=== PATIENT | female | born 1965 | race Caucasian/White ===

== ENCOUNTER 2017-10-07 14:49 | Emergency (ER) | payer OTHER ==
[2017-10-07 15:26] VITALS: BP 109/74; PULSE 61; TEMP 98.5; BMI 24.0
--- NOTE | 2017-10-07 15:30 | PDOC ---
History of Present Illness - General History Source: Patient, Family (Sister in law. ) Exam Limitations: No Limitations - History of Present Illness Initial Comments: 10/07/17 15:53 The patient is a 51 year old female, with a significant past medical history of migraines and arthritis, who presents to the emergency department with, 2 weeks of right ankle pain and swelling. The patient reports that she twisted her ankle 2 weeks ago while rushing down steps and believed it was healing. She now feels as the ankle pain has worsened with associated swelling. She reports difficulty ambulating due to the pain. She denies recent fevers, chills, headache or dizziness. She denies recent nausea, vomit, diarrhea or constipation. She denies recent dysuria, frequency, urgency or hematuria. She denies recent chest pain or shortness of breath. Allergies: NKA Past surgical history: None reported. Social history: Nonsmoker. Denies EtOH use and recreational drug use. Familial History: Reviewed and noncontributory. <Gracia Mcdaniels - Last Filed: 10/07/17 15:53> <Leonardo Ochoa - Last Filed: 10/07/17 16:06> - General Chief Complaint: Pain Stated Complaint: RIGHT ANKLE AND HEEL PAIN 2 WEEKS Time Seen by Provider: 10/07/17 14:53 Past History <Gracia Mcdaniels - Last Filed: 10/07/17 15:53> - Past Medical History COPD: No Other medical history: arthritis,migraines - Suicide/Smoking/Psychosocial Hx Smoking History: Never smoked Have you smoked in the past 12 months: No Information on smoking cessation initiated: No Hx Alcohol Use: No Drug/Substance Use Hx: No Substance Use Type: None <Leonardo Ochoa - Last Filed: 10/07/17 16:06> - Past Medical History Allergies/Adverse Reactions: Allergies Allergy/AdvReac Type Severity Reaction Status Date / Time No Known Allergies Allergy Unverified 10/07/17 14:50 Home Medications: Ambulatory Orders Naproxen [Naprosyn -] 1 tab PO DAILY 10/07/17 Review of Systems - Review of Systems Able to Perform ROS?: Yes Comments:: 10/07/17 15:54 CONSTITUTIONAL: Absent: fever, no chills, no fatigue EYES: Absent: visual changes ENT: Absent: ear pain, no sore throat CARDIOVASCULAR: Absent: chest pain, no palpitations RESPIRATORY: Absent: cough, no SOB GI: Absent: abdominal pain, no nausea, no vomiting, no constipation, no diarrhea GENITOURINARY: Absent: dysuria, no frequency, no hematuria MUSKULOSKELETAL: Present: Right ankle pain and swelling. Absent: back pain SKIN: Absent: rash NEURO: Absent: headache All Other Systems: Reviewed and Negative <Gracia Mcdaniels - Last Filed: 10/07/17 15:53> *Physical Exam - Vital Signs Last Vital Signs Temp Pulse Resp BP Pulse Ox 98.5 F 61 16 109/74 100 10/07/17 14:50 10/07/17 14:50 10/07/17 14:50 10/07/17 14:50 10/07/17 14:50 - Physical Exam Comments: 10/07/17 15:54 GENERAL: Well developed, well nourished. Awake and alert. No acute distress. HEENT: Normocephalic, atraumatic. PERRLA, EOMI. No conjunctival pallor. Sclera are non- icteric. Moist mucous membranes. Oropharynx is clear. NECK: Supple. Full ROM. No JVD. Carotid pulses 2+ and symmetric, without bruits. No thyromegaly. No lymphadenopathy. CARDIOVASCULAR: Regular rate and rhythm. No murmurs, rubs, or gallops. Distal pulses are 2+ and symmetric. PULMONARY: No evidence of respiratory distress. Lungs clear to auscultation bilaterally. No wheezing, rales or rhonchi. ABDOMINAL: Soft. Non-tender. Non-distended. No rebound or guarding. No organomegaly. Normoactive bowel sounds. MUSCULOSKELETAL Normal range of motion at all joints. No bony deformities or tenderness. No CVA tenderness. EXTREMITIES: Mild swelling and tenderness over the lateral ankle ligament and lateral malleolus. No deformities or instability. No 5th metatarsal tenderness or swelling. Pulses full. No sensory deficits. Slight limp with weight bearing due to lateral ankle pain. No cyanosis. No clubbing. No edema. No calf tenderness. SKIN: Warm and dry. Normal capillary refill. No rashes. No jaundice. NEUROLOGICAL: Alert, awake, appropriate. Cranial nerves 2-12 intact. No deficits to light touch and temperature in face, upper extremities and lower extremities. No motor deficits in the in face, upper extremities and lower extremities. Normoreflexic in the upper and lower extremities. Normal speech. Toes are down- going bilaterally. Gait is normal without ataxia. PSYCHIATRIC: Cooperative. Good eye contact. Appropriate mood and affect. <Gracia Mcdaniels - Last Filed: 10/07/17 15:53> - Vital Signs Last Vital Signs Temp Pulse Resp BP Pulse Ox 98.5 F 61 16 109/74 100 10/07/17 14:50 10/07/17 14:50 10/07/17 14:50 10/07/17 14:50 10/07/17 14:50 <Leonardo Ochoa - Last Filed: 10/07/17 16:06> Medical Decision Making - Medical Decision Making 10/07/17 16:03 X-rays negative. Likely chronic sprain. Aircast applied, patient more comfortable, ambulating adequately. No distal numbness tingling pain or weakness. Good capillary refill. Good toe motion. Continue ice and Naprosyn. Follow-up orthopedist if no improvement one week. Fully ambulatory and in no significant pain or other distress upon discharge with her daughter. <Leonardo Ochoa - Last Filed: 10/07/17 16:06> *DC/Admit/Observation/Transfer - Attestations Scribe Attestion: 10/07/17 15:54 Documentation prepared by Gracia Mcdaniels, acting as medical records supervisor for Leonardo Lieberman MD. <Gracia Mcdaniels - Last Filed: 10/07/17 15:53> - Discharge Dispostion Decision to Admit order: No <Leonardo Ochoa - Last Filed: 10/07/17 16:06> Diagnosis at time of Disposition: Ankle sprain Qualifiers: Encounter type: initial encounter Involved ligament of ankle: tibiofibular ligament Laterality: right Qualified Code(s): S93.431A - Sprain of tibiofibular ligament of right ankle, initial encounter - Discharge Dispostion Disposition: HOME Condition at time of disposition: Improved - Referrals Referrals: Alfredo Dang MD [Staff Physician] - 1 week - Patient Instructions Printed Discharge Instructions: DI for Ankle Sprain Additional Instructions: Rest. Limited standing and walking, but maintain some activity. Continue Naprosyn twice daily. Use air cast for support and standing or walking. See orthopedist if no improvement one week for further evaluation and treatment
== END 2017-10-07 16:18 | disposition home or self-care (01) ==
LOC: FER 14:49
PROC: 2W3QX1Z Immobilization of Right Lower Leg using Splint (ICD-10-PCS; principal; 2017-10-07)
DX: S93.431A Sprain of tibiofibular ligament of right ankle, initial encounter (principal); W10.9XXA Fall (on) (from) unspecified stairs and steps, initial encounter; Y93.89 Activity, other specified; Y92.9 Unspecified place or not applicable
CPT/HCPCS: 73610-TC-RT-FY; 99282-25